=== PATIENT | female | born 1945 | race Caucasian/White ===

== ENCOUNTER → 2018-10-06 | Outpatient (CLI) | payer MEDICARE, MEDICAID, SELFPAY ==
--- NOTE | 2018-10-06 12:00 | PET_ITS ---
EXAMINATION: FDG PET/CT INDICATIONS: A 73-year-old female with reported history of pulmonary nodularity. COMPARISON EXAMINATION: CT of the chest report dated 09/12/18 TECHNIQUE: Following the intravenous administration of 15.47 mCi of F-18 deoxyglucose via the right forearm, multiplanar image acquisitions of the neck, chest, abdomen and pelvis to level of mid thigh, obtained at one hour post radiopharmaceutical administration contemporaneously interpreted with the current CT of the neck, chest, abdomen and pelvis to level of mid thigh, dated 10/06/[address] of the chest report dated 09/12/18 reveal: SERUM GLUCOSE LEVEL: 99 mg/dl. HEIGHT: 65 inches. WEIGHT: 220 lbs. FINDINGS: 1. There is no quantitative scintigraphic evidence of abnormal increased glucose metabolism to correlate with a non-calcified, approximately 9.1-mm parenchymal density defined in the right mid posterior lung field, superior segment of the right lower lobe noted on review of CT of the thorax dated 10/06/18. 2. Normal physiologic distribution of the radiopharmaceutical is apparent in the hepatic (4.4) and splenic parenchyma, both renal units, bladder and visualized intestinal tract. The visualized portion of the cerebral cortex demonstrate symmetric and preserved glucose metabolism. Mild increased radiopharmaceutical concentration is defined in the bilateral adrenal glands generating a calculated maximal standard uptake value of 1.6. Quantitative criteria for viable adrenal gland neoplasm are not fulfilled. There appears to be urethral pooling of radiopharmaceutical. Pertinent CT findings are as follows: CHEST: There is atherosclerotic calcification defined in the thoracic aorta without evidence of dilatation-aneurysm formation. Coronary arterial calcification is observed. Bilateral axillary soft tissue densities with fatty hilus formation are non-glucose avid. There are no additional parenchymal densities-nodules defined in the right-left hemithorax demonstrating discernible increased glucose metabolism. A linear density noted in the left lower anterolateral lung field, ground glass in presentation is non-glucose avid. ABDOMEN AND PELVIS: There is atherosclerotic calcification defined in the abdominal aorta without evidence of dilatation-aneurysm formation. Pelvic arterial calcification is observed. Cholelithiasis is demonstrated. The uterus appears surgically absent. Bilateral subcentimeter inguinal soft tissue densities are ametabolic. Colonic diverticulosis is defined. SKELETAL: Degenerative changes are noted in the cervical, thoracic and lumbar spine. PET/PET/CT Tumor Base -Thigh Init IMPRESSION: 1. NEGATIVE EXAMINATION. There is no quantitative scintigraphic evidence of abnormal increased glucose metabolism within the context of the parenchymal density defined in the right mid posterior lung field, superior segment of the right lower lobe to correlate with structural changes noted on review of CT of the thorax dated 10/06/18. 2. Anatomic stability may be ensured in the nonglucose avid right hemithorax pulmonary parenchymal density with repeat CT of the thorax in three months. (Mónica, Seminars in Thoracic and Cardiovascular Surgery 14:292, 2002). Electronic Signature Bismark Todd D.O. Electronically Signed: Bismark Todd DO at 12:40 EDT Tel , Service support ,
== END | disposition home or self-care (01) ==
PROVIDERS: Family Provider Internal Medicine; PCP Internal Medicine; Referring Provider Physician Assistant Medical; Visit Provider Physician Assistant Medical
DX: R91.1 Solitary pulmonary nodule (principal)
CPT/HCPCS: 78815; A9552